=== PATIENT | female | born 1970 | race Caucasian/White ===

== ENCOUNTER → 2017-05-25 | Outpatient (CLI) | payer BC ==
[~2017-05-25] MED LIST: ACET-1311 PO; CMD5 PO; IBUP-1050 PO; NUVVR INT UTER
--- NOTE | 2017-05-25 12:49 | DIAGNOSTIC IMAGING REPORT ---
CAROTID DOPPLER NECK ART HISTORY: Mental status change DIZZINESS,MALAISE,FATIGUE,UNDIAGNOSED MURMURS COMPARISON: None. TECHNIQUE: Real-time, grayscale, and color Doppler sonography of the carotid arteries was performed. Imaging reviewed in the transverse and longitudinal planes. All measurements were calculated based on NASCET criteria. FINDINGS: Antegrade flow is seen in the bilateral vertebral arteries. The brachial pressures are hemodynamically similar. Minimal plaque formation bilaterally The peak systolic velocity within the right ICA is 95. The right systolic ratio is 0.9. The peak systolic velocity within the left ICA is 89. The left systolic ratio is 0.9. IMPRESSION: No hemodynamically significant stenosis seen within the carotid arteries. The above report was generated using voice recognition software. It may contain grammatical, syntax or spelling errors. Electronically signed by: Roc Duran M.D. 05/25/2017 12:48 PM Dictated Date/Time: 05/25/2017 12:46 PM
--- NOTE | 2017-05-25 15:25 | ECHOCARDIOGRAM REPORT ---
*NOTICE TO RECEIVING DEMOCRAT AGENCY This information is strictly Confidential and protected under [place] law. [place] law prohibits you from making any further disclosure of this information unless further disclosure is expressly permitted by the written consent of the person to whom it pertains or is authorized by law. A general authorization for the release of medical or other information is not sufficient for this purpose. Hospital accepts no responsibility if the information is made available to any other person, INCLUDING THE PATIENT. Interpretation Summary * Name: CARTER WAY Study Date: 05/25/2017 12:43 PM BP: 125/74 mmHg * Patient Location: [facility] HR: 55 * : 1970 (M/d/yyyy) Gender: Female Height: 63 in * Age: 46 yrs Ethnicity: CA Weight: 160 lb * Ordering Physician: Dannie Johnson * Referring Physician: Dannie Johnson D.O. * Performed By: Jeannie Rodriguez RDCS * * Reason For Study: Dizziness, malaise, fatigue, undiagnosed murmurs * BSA: 1.8 m2 * -- Conclusions -- * Normal LV chamber size and wall thickness. * Normal LV systolic function, EF 65-70% * No segmental left ventricular wall motion abnormalities are noted. * Normal diastolic function. * Mild mitral regurgitation. Procedure Details * A complete two-dimensional transthoracic echocardiogram was performed (2D, M-mode, Doppler and color flow Doppler). Left Ventricle * The left ventricle is normal in size. * There is normal left ventricular wall thickness. * Ejection Fraction = 65-70%. * Left ventricular systolic function is normal. * No segmental left ventricular wall motion abnormalities are noted. * The left ventricular wall motion is normal. Right Ventricle * The right ventricular cavity size is normal (basal dimension <4.2 cm in right ventricular apical 4-chamber view). * The right ventricular systolic function is normal as assessed by tricuspid annular plane systolic excursion (TAPSE) (normal >1.5 cm). Atria * The left atrial size is normal. * Right atrial size is normal. * No ASD detected; PFO is not assessed. Mitral Valve * The mitral valve anatomy is normal. * There is no mitral valve stenosis. * There is mild mitral regurgitation. Tricuspid Valve * The tricuspid valve is normal in structure and function. Aortic Valve * The aortic valve is normal in structure and function. Pulmonic Valve * The pulmonary valve is not well seen, but the Doppler examination is normal without significant regurgitation or stenosis. Great Vessels * The aortic root and proximal ascending aorta are normal sized. Pericardium/Pleural * There is no pericardial effusion. Left Ventricular Diastolic Function * Pulse wave TDI of the anterior and posterior mitral annulas demonstrates normal LV relaxation MMode 2D Measurements and Calculations IVSd 0.82 cm LVIDd 5.0 cm LVIDs 3.2 cm LVPWd 0.89 cm IVS/LVPW 0.92 FS 36.2 % EDV(Teich) 118.2 ml ESV(Teich) 40.7 ml EF(Teich) 65.6 % EDV(cubed) 125.0 ml ESV(cubed) 32.5 ml EF(cubed) 74.0 % LV mass(C)d 147.9 grams LV mass(C)dI 84.1 grams/m\S\2 SV(Teich) 77.6 ml SI(Teich) 44.1 ml/m\S\2 SV(cubed) 92.5 ml SI(cubed) 52.6 ml/m\S\2 Ao root diam 3.0 cm Ao root area 7.3 cm\S\2 ACS 2.1 cm LA dimension 3.7 cm asc Aorta Diam 3.1 cm LA/Ao 1.2 LVOT diam 2.0 cm LVOT area 3.1 cm\S\2 LVAd ap4 24.9 cm\S\2 LVLd ap4 7.2 cm EDV(MOD-sp4) 73.3 ml EDV(sp4-el) 73.4 ml LVAs ap4 12.9 cm\S\2 LVLs ap4 5.7 cm ESV(MOD-sp4) 24.5 ml ESV(sp4-el) 24.6 ml EF(MOD-sp4) 66.5 % EF(sp4-el) 66.5 % LVAd ap2 28.8 cm\S\2 LVLd ap2 7.4 cm EDV(MOD-sp2) 95.5 ml EDV(sp2-el) 95.4 ml LVAs ap2 14.8 cm\S\2 LVLs ap2 6.2 cm ESV(MOD-sp2) 29.4 ml ESV(sp2-el) 30.1 ml EF(MOD-sp2) 69.3 % EF(sp2-el) 68.5 % LVLd %diff 3.3 % EDV(MOD-bp) 85.0 ml LVLs %diff 6.7 % ESV(MOD-bp) 27.8 ml EF(MOD-bp) 67.4 % SV(MOD-sp4) 48.8 ml SI(MOD-sp4) 27.7 ml/m\S\2 SV(MOD-sp2) 66.2 ml SI(MOD-sp2) 37.6 ml/m\S\2 SV(MOD-bp) 57.3 ml SI(MOD-bp) 32.6 ml/m\S\2 SV(sp4-el) 48.8 ml SI(sp4-el) 27.7 ml/m\S\2 SV(sp2-el) 65.3 ml SI(sp2-el) 37.1 ml/m\S\2 Doppler Measurements and Calculations MV E max helen 80.9 cm/sec MV A max helen 66.3 cm/sec MV E/A 1.2 MV dec time 0.24 sec Ao V2 max 127.1 cm/sec Ao max PG 6.5 mmHg Ao max PG (full) 2.2 mmHg AMERICA(V,A) 2.5 cm\S\2 AMERICA(V,D) 2.5 cm\S\2 LV V1 max PG 4.3 mmHg LV V1 max 103.5 cm/sec PA V2 max 80.2 cm/sec PA max PG 2.6 mmHg PA acc slope 441.8 cm/sec\S\2 PA acc time 0.16 sec PI max helen 92.3 cm/sec PI max PG 3.4 mmHg PI dec slope 89.9 cm/sec\S\2 PI P1/2t 300.8 msec TR max helen 199.0 cm/sec PA pr(Accel) 8.2 mmHg
== END | disposition home or self-care (01) ==
LOC: C.ULTR 12:14
PROVIDERS: ATTEND Internal Medicine
DX: R42 Dizziness and giddiness (principal); R53.81 Other malaise; R53.83 Other fatigue; R01.1 Cardiac murmur, unspecified; I34.0 Nonrheumatic mitral (valve) insufficiency

== ENCOUNTER → 2017-06-16 | Outpatient (CLI) | payer BC ==
--- NOTE | 2017-06-16 14:55 | MAMMOGRAPHY REPORT ---
BILATERAL DIGITAL SCREENING MAMMOGRAM TOMOSYNTHESIS WITH CAD: 06/16/2017 CLINICAL HISTORY: Routine screening. Patient has no complaints. TECHNIQUE: Breast tomosynthesis in addition to standard 2D mammography was performed. Current study was also evaluated with a Computer Aided Detection (CAD) system. COMPARISON: Comparison is made to exam dated: 09/30/2014 mammogram - [facility]. BREAST COMPOSITION: There are scattered areas of fibroglandular density in both breasts. FINDINGS: No suspicious masses, calcifications, or areas of architectural distortion are noted in ei ther breast. There has been no significant interval change compared to prior exams. Scattered bilater al benign-appearing calcifications are not significantly changed. IMPRESSION: ACR BI-RADS CATEGORY 2: BENIGN There is no mammographic evidence of malignancy. A 1 year screening mammogram is recommended. The pa tient will receive written notification of the results. Approximately 10% of breast cancers are not detected with mammography. A negative mammographic report should not delay biopsy if a clinically suggestive mass is present. Carolyn Hurtado M.D. ah/:06/16/2017 12:37:03 Overcoiler: Shima JACINTO(R)(M)(BD), [facility] letter sent: Normal 1/2 BI-RADS Code: ACR BI-RADS Category 2: Benign
== END | disposition home or self-care (01) ==
LOC: C.MAMM 11:42
PROVIDERS: ATTEND Obstetrics & Gynecology
DX: Z12.31 Encounter for screening mammogram for malignant neoplasm of breast (principal)